=== PATIENT | female | born 1980 | race Caucasian/White ===

== ENCOUNTER 2019-10-19 09:52 | Day surgery (SDC) | payer OTHER ==
[~2019-10-19 09:52] MED LIST: Bupivacaine 0.5%/EPINEPHrine 1:200,000 50 ML MDV ONE
[2019-10-19] MEDS ORDERED: Acetaminophen 500 MG Tab PO ONE (10:00)
[2019-10-19] MEDS: Dextrose 5%-Lactated Ringers 1,000 ML IV SCH ×2 (10:08→14:13)
[2019-10-19] MEDS ORDERED: fentaNYL 250 MCG/5 ML SDV ONE (10:12)
[2019-10-19] MEDS ORDERED: Dexamethasone 4 MG/ML SDV ONE (10:12)
[2019-10-19] MEDS ORDERED: Rocuronium 50 MG/5 ML Vial ONE (10:12)
[2019-10-19] MEDS ORDERED: Ondansetron 4 MG/2 ML SDV ONE (10:12)
[2019-10-19] MEDS ORDERED: Propofol 200 MG/20 ML SDV ONE (10:12)
[2019-10-19] MEDS ORDERED: Glycopyrrolate 0.2 MG/ML 5 ML MDV ONE (10:12)
[2019-10-19] MEDS ORDERED: Neostigmine Methylsulfate 1 MG/ML 5 ML Syringe ONE (10:12)
[2019-10-19] MEDS ORDERED: Scopolamine 1.5 MG Transdermal Patch TOP SCH (10:30)
[2019-10-19] MEDS: cefOXitin 2 GM in Sodium Chloride 0.9% 50 ML IV ONE ×2 (11:05→13:16)
[2019-10-19] MEDS ORDERED: Ketorolac 60 MG/2 ML SDV ONE (11:22)
[2019-10-19] MEDS ORDERED: hydrOXYzine HCL 100 MG/2 ML SDV IM ONE (12:19)
[2019-10-19] MEDS ORDERED: fentaNYL 100 MCG/2 ML SDV IVPUSH ONE ×2 (12:19→12:33)
[2019-10-19] MEDS ORDERED: Ketamine 500 MG/5 ML MDV IV SCH (12:45)
[2019-10-19] MEDS ORDERED: Ondansetron 4 MG/2 ML SDV IVPUSH PRN (13:10)
[2019-10-19] MEDS ORDERED: HYDROmorphone 0.5 MG/0.5 ML Syringe IVPUSH PRN (13:10)
[2019-10-19] MEDS ORDERED: HYDROmorphone 1 MG/ML Syringe IV PRN (13:10)
[2019-10-19] MEDS ORDERED: SCOPOLAMINE PATCH CHECK TOP SCH (13:10)
[2019-10-19] MEDS ORDERED: Pantoprazole 40 MG Vial IVPUSH SCH (14:00)
[2019-10-19] MEDS ORDERED: Sodium Ferric Gluconate Cmplex 250 MG in Sodium Chloride 0.9% 100 ML IV ONE (15:00)
[2019-10-19] MEDS: Acetaminophen/oxyCODONE 325-5 MG Tab PO PRN ×3 (15:57→23:59)
[2019-10-19] MEDS: cefOXitin 2 GM in Sodium Chloride 0.9% 50 ML IV SCH ×2 (17:34→22:50)
[2019-10-20] MEDS: Dextrose 5%-Lactated Ringers 1,000 ML IV SCH (03:07)
[2019-10-20] MEDS: Acetaminophen/oxyCODONE 325-5 MG Tab PO PRN ×3 (03:11→09:51)
[2019-10-20] MEDS: cefOXitin 2 GM in Sodium Chloride 0.9% 50 ML IV SCH (05:07)
[2019-10-20 07:49] VITALS: BP 118/75; PULSE 87
--- NOTE | 2019-10-20 08:36 | DISCH ---
ADMISSION DIAGNOSES: 1. Cholelithiasis. 2. Status post Issa-en-Y gastric bypass surgery. 3. Unspecified surgical malabsorption. 4. B12 deficiency. 5. Iron deficiency anemia. 6. Vitamin D deficiency. 7. BMI 31. 8. Dyslipidemia. 9. Major depression disorder, recurrent episode, in full remission. 10.Venous insufficiency, chronic, peripheral. 11.Back pain. 12.Joint pain. DISCHARGE DIAGNOSES: Laparoscopic cholecystectomy for chronic cholecystitis and cholelithiasis. Date of surgery: 10/19/2019. Surgeon: Ac Harris MD. HISTORY: Layne Barros is a 39-year-old female who had right upper quadrant and mid epigastric abdominal pain. After preoperative evaluation and discussion of possible risks and possible complications, she wished to proceed with surgical procedure. HOSPITAL COURSE: Layne had her surgery on 10/19/2019. She received 1 dose of ferric gluconate 250 mg IV for low ferritin and received 1 on the day of discharge. Her pain was well managed. Her activity was good. She tolerated oral liquids and an oral diet, and vital signs were stable. She was able to be discharged to home. PHYSICAL EXAMINATION: GENERAL: Layne Barros is a 39-year-old female. VITAL SIGNS: Height 5 feet 8 inches, weight is 206 pounds. TPR 99.1, 58, 15, blood pressure 121/69. HEENT: Negative. NECK: Supple. HEART: Regular rate and rhythm. LUNGS: Clear. ABDOMEN: Dressings dry and intact. Her LEANDRA drain is a tea colored and will be left in. Total output was 70 mL. EXTREMITIES: Without peripheral edema. DISPOSITION: Discharged to home. CONDITION: Stable and improving. FOLLOWUP: Appointment with Megan Allen PA-C, on 10/29/2019 at 10 a.m. NEW PRESCRIPTIONS: Percocet 5/325 mg 1 every 4 hours p.r.n. pain #42. She is to resume her home medication; calcium with vitamin D 1 tablet twice daily, vitamin D3 5000 International Units daily, B12 1000 mcg oral daily, Vitron-C 1 three times daily, multivitamin 1 tablet twice daily, fish oil 1000 mg, softgel oral daily, vitamin B complex 1 tablet daily. DIET: Usual diet as tolerated. Drink 8 to 10 glasses of water a day. ACTIVITY: No lifting greater than 10 pounds for 2 weeks. Walk 6 times daily inside your home. No lifting greater than 10 pounds for 2 weeks. Driving: Do not drive while on pain medication. May shower. Notify provider if any fever, increased pain, nausea, or vomiting. Keep site clean and dry. Use incentive spirometer 10 times every hour while awake. Strip, empty, measure, and record amount and color of LEANDRA drain 4 times a day and bring to clinic appointments. SPECIAL INSTRUCTION: Use incentive spirometer 10 times every hour while awake for 1 week and wear abdominal binder for 2 weeks and then as tolerated.
[2019-10-20] MEDS ORDERED: Sodium Ferric Gluconate Cmplex 250 MG in Sodium Chloride 0.9% 100 ML IV ONE (09:00)
--- NOTE | 2019-10-21 12:30 | OR ---
DATE OF PROCEDURE: 10/19/2019 SURGEON: Ac Harris MD PREOPERATIVE DIAGNOSIS: Chronic cholecystitis and cholelithiasis. POSTOPERATIVE DIAGNOSIS: Chronic cholecystitis and cholelithiasis. OPERATIVE PROCEDURE: Laparoscopic cholecystectomy (60378). ANESTHESIA: General. INDICATION FOR PROCEDURE: This is a 39-year-old female presenting with recurrent episodes of right upper quadrant pain radiating to the back. Ultrasound did show cholelithiasis. Clinically, the patient's picture is consistent with biliary colic. Plan is to proceed with a laparoscopic or if necessary open cholecystectomy. Potential risks of the procedure including bleeding, infection, injury to underlying viscera, possible migration of stones into the common bile duct requiring additional procedure for correction as well as the remote possibility of cardiopulmonary, septic, or hemorrhagic complications leading to were discussed. She is also aware of the possibility of some persistent symptoms postoperatively, all these are present, and she wishes to proceed. Additionally, as reviewed with the patient preoperatively, her ferritin level recently was noted to be quite low at 3, and she will receive some postoperative iron infusions. DETAILS OF PROCEDURE: The patient was taken to the operating room and after general endotracheal anesthesia was induced, the abdomen was prepped and draped. An epigastric transverse incision was made and peritoneal cavity entered under direct vision with an Optiview trocar, inflated to 15 mmHg pressure with CO2. Laparoscope was then reinserted. No underlying trocar insertion site injuries were seen. Following this, additional 12 mm trocar was placed in the subumbilical area, and the right subcostal 5 mm trocar placed. The patient had bilateral transversus abdominis plane blocks at this point. The gallbladder was noted to be thick-walled and parker in appearance and had some omental adhesions, which were taken down with Harmonic scalpel. This allowed then dissection down toward the gallbladder-cystic duct junction. Once that area was well delineated as was the adjacent cystic artery, the cystic duct-gallbladder neck junction was initially taken with surgical stapler, this being a amador load. The artery was then clipped 3 times proximally and once distally, and divided. Gallbladder was then dissected off the gallbladder bed with Harmonic scalpel and delivered through the epigastric trocar site. Upon removal of the gallbladder, it contained multiple small stones, some of which were given to the patient and the remainder were sent with the pathologic specimen. The area of dissection was inspected. The patient's cystic duct closure was quite edematous, which was the reason we used stapler. Given this, there is some chance of some postoperative bile leak and therefore a 10-Malay Rick-Rodriguez drain was placed through the right lateral trocar site and positioned into the area of the gallbladder fossa. The remaining trocars were then removed, and the peritoneal cavity deflated. The fascia at the midline 12 mm site was closed with 0 Vicryl stitch, and the skin with 4-0 Vicryl skin stitch. Dressing was applied. The patient was taken to the recovery room in satisfactory condition. Ac Harris MD /[id number]
== END 2019-10-20 13:05 | disposition home or self-care (01) ==
LOC: JP.SDS 09:52 → JP.MS 13:13 → JP.SDS 10-20 13:05
PROVIDERS: ATTEND Surgery
DX: K80.10 Calculus of gallbladder with chronic cholecystitis without obstruction (principal); I89.8 Other specified noninfective disorders of lymphatic vessels and lymph nodes; I87.2 Venous insufficiency (chronic) (peripheral); E78.00 Pure hypercholesterolemia, unspecified; E55.9 Vitamin D deficiency, unspecified; E66.9 Obesity, unspecified; K91.2 Postsurgical malabsorption, not elsewhere classified; F41.9 Anxiety disorder, unspecified; F32.5 Major depressive disorder, single episode, in full remission; Z88.5 Allergy status to narcotic agent; Z91.048 Other nonmedicinal substance allergy status; Z68.31 Body mass index [BMI] 31.0-31.9, adult; Z79.899 Other long term (current) drug therapy
CPT/HCPCS: 36415; 47562; 81025; 82247; 84075; 85025; 88304; 94762; A9270; C9113; J0171; J0694; J1100; J1170; J1885; J2405; J2704; J2710; J2795; J2916; J3010; J3410; J3490; J7050; J7121

== ENCOUNTER 2019-10-23 22:28 | Observation (INO) | payer OTHER ==
[2019-10-23] MEDS ORDERED: Ondansetron 4 MG/2 ML SDV IVPUSH ONE (23:24)
[2019-10-23] MEDS ORDERED: HYDROmorphone 0.5 MG/0.5 ML Syringe IVPUSH ONE (23:25)
[2019-10-23] MEDS ORDERED: Sodium Chloride 0.9% 1,000 ML IV SCH (23:30)
--- NOTE | 2019-10-23 23:31 | EDM.PDOC ---
ED HPI GENERAL MEDICAL PROBLEM - General Chief Complaint: Abdominal Pain Stated Complaint: SURGERY TUES IN PAIN Time Seen by Provider: 10/23/19 23:26 Source of Information: Reports: Patient History Limitations: Reports: No Limitations - History of Present Illness INITIAL COMMENTS - FREE TEXT/NARRATIVE: pt had a laproscopic gall bladder on friday. She has suddenly had alot of increase in pain in the rt upper abdoman. She has a LEANDRA in but she does not have sig drainage coming from that. She is running za temp tonight. She has had chills. Onset: Today, Other (pt has felt alot sicker today. She has had a fever and increased pain. ) Duration: Hour(s): Location: Reports: Abdomen Associated Symptoms: Reports: Fever/Chills, Loss of Appetite, Other ( increased pain. ) 8 Pain Score (Numeric/FACES): 6 - Related Data Allergies Allergy/AdvReac Type Severity Reaction Status Date / Time adhesive tape Allergy Unknown Rash Uncoded 10/23/19 22:44 Home Meds: Home Meds Calcium Carb/Vitamin D3/Vit K1 [Calcium + Vit D & K Chew] 1 tab PO BID 01/23/16 [History] Cholecalciferol (Vitamin D3) [Vitamin D3] 5,000 unit PO DAILY 01/23/16 [History] Vitamin B Complex [B Complex] 1 tab SL DAILY 01/23/16 [History] Cyanocobalamin (Vitamin B-12) [Vitamin B-12] 1,000 mcg PO DAILY 10/15/19 [ History] Iron,Carbonyl/Ascorbic Acid [Iron 100-Vitamin C Tablet] 65 - 125 mg PO TID 10/15 [History] [place]-3 Fatty Acids/Fish Oil [Fish Oil 1,000 mg Softgel] 1,000 mg PO DAILY 10/15 [History] Multivitamins [Childrens Chewable Vitamin] 2 tab PO DAILY 10/19/19 [History] Acetaminophen/oxyCODONE [Percocet 325-5 MG] 1 tab PO Q4HR PRN #42 tablet [Rx] Pantoprazole Sodium 1 tab PO DAILY 10/23/19 [History] Past Medical History [employer] History: Reports: Musculoskeletal History: Reports: Arthritis Neurological History: Reports: Other (See Below) Other Neuro History: Michelle olivarez Psychiatric History: Reports: Depression Hematologic History: Reports: B12 Deficiency, Iron Deficiency - Infectious Disease History Infectious Disease History: Reports: Chicken Pox - Past Surgical History HEENT Surgical History: Reports: Adenoidectomy, Oral Surgery, Tonsillectomy, Other (See Below) GI Surgical History: Reports: Bariatric Procedure, Cholecystectomy, EGD Female Surgical History: Reports: Section Social & Family History - Tobacco Use Smoking Status *Q: Never Smoker - Caffeine Use Caffeine Use: Reports: Coffee ED ROS GENERAL - Review of Systems Review Of Systems: See Below Constitutional: Reports: Fever, Chills, Malaise HEENT: Reports: No Symptoms Respiratory: Reports: No Symptoms Cardiovascular: Reports: Palpitations Endocrine: Reports: No Symptoms GI/Abdominal: Reports: Abdominal Pain, Other (pt has increased abdomanal pain. ) : Reports: No Symptoms Musculoskeletal: Reports: No Symptoms Skin: Reports: No Symptoms ED EXAM, GI/ABD - Physical Exam Exam: See Below Text/Narrative:: pt arrived with increased pain in the rt upper quadrant. She has a fever. She had her gall bladder removed on friday. She is not vomiting. She has been chilling. Exam Limited By: No Limitations General Appearance: Alert, Anxious, Moderate Distress Ears: Normal TMs Nose: Normal Inspection Throat/Mouth: Normal Inspection Head: Atraumatic Neck: Normal Inspection Respiratory/Chest: No Respiratory Distress Cardiovascular: Regular Rate, Rhythm GI/Abdominal Exam: Other (pt is very tender over the rt upoper abdoman. ) (Female) Exam: Deferred Rectal (Female) Exam: Deferred Back Exam: Normal Inspection Extremities: Normal Inspection Neurological: Alert, Oriented, Normal Cognition Psychiatric: Normal Affect Course - Vital Signs Last Recorded V/S: Last Vital Signs Temp 36.9 C 10/24/19 15:08 Pulse 101 H 10/24/19 15:08 Resp 16 10/24/19 15:08 BP 125/70 10/24/19 15:08 Pulse Ox 94 L 10/24/19 15:08 - Orders/Labs/Meds Orders: Active Orders 24 hr Category Date Time Status CULTURE BLOOD [BC] Urgent Lab 10/24/19 01:35 Received CULTURE BLOOD [BC] Urgent Lab 10/24/19 01:40 Received Blood Culture x2 Reflex Set [OM.PC] Urgent Oth 10/24/19 01:27 Ordered Medication Orders Diphenhydramine HCl (Benadryl) 25 - 50 mg IVPUSH Q4H PRN PRN Reason: Itching Last Admin: 10/24/19 09:20 Dose: 50 mg Diphenhydramine HCl (Benadryl) 25 - 50 mg PO Q4H PRN PRN Reason: Itching Hydromorphone HCl (Dilaudid District Extension Service Agent 15 Mg In Ns 30 Ml) 0 mg IV ASDIRECTED PRN; Protocol PRN Reason: Pain Last Admin: 10/24/19 02:31 Dose: 15 mg Piperacillin/Tazobactam/ (Dextrose 3.375 gm/ Premix) 50 mls @ 100 mls/hr IV Q6H [facility] Last Admin: 10/24/19 14:59 Dose: 100 mls/hr Infusion: 10/24/19 09:50 Dose: 100 mls/hr Admin: 10/24/19 09:20 Dose: 100 mls/hr Dextrose/Lactated Ringer's (Dextrose 5%-Lactated Ringers) 1,000 mls @ 100 mls/ hr IV ASDIRECTED [facility] Last Admin: 10/24/19 09:24 Dose: 100 mls/hr Naloxone HCl (Narcan) 0.4 mg IVPUSH Q2M PRN PRN Reason: Respiratory Distress Ondansetron HCl (Zofran) 4 mg IV Q6H PRN PRN Reason: Nausea/Vomiting Last Admin: 10/24/19 12:59 Dose: 4 mg Admin: 10/24/19 06:45 Dose: 4 mg Admin: 10/24/19 02:38 Dose: 4 mg Pantoprazole Sodium (Protonix Iv) 40 mg IV Q24H [facility] Last Admin: 10/24/19 09:27 Dose: 40 mg Labs: Laboratory Tests 10/23/19 10/23/19 10/23/19 Range/Units 23:33 23:33 23:33 WBC 10.1 (4.5-11.0) K/uL RBC 3.98 (3.30-5.50) M/uL Hgb 11.3 L (12.0-15.0) g/dL Hct 35.9 L (36.0-48.0) % MCV 90 (80-98) fL MCH 28 (27-31) pg MCHC 32 (32-36) % Plt Count 247 (150-400) K/uL Neut % (Auto) 80 H (36-66) % Lymph % (Auto) 8 L (24-44) % [place] % (Auto) 9 H (2-6) % Eos % (Auto) 3 (2-4) % Baso % (Auto) 0 (0-1) % Sodium 135 L (140-148) mmol/L Potassium 4.3 (3.6-5.2) mmol/L Chloride 101 (100-108) mmol/L Carbon Dioxide 22 (21-32) mmol/L Anion Gap 16.3 H (5.0-14.0) mmol/L BUN 9 (7-18) mg/dL Creatinine 0.7 (0.6-1.0) mg/dL Est Cr Clr Drug Dosing 108.85 mL/min Estimated GFR (MDRD) > 60 (>60) Glucose 115 H (74-106) mg/dL Lactic Acid 1.3 (0.4-2.0) mmol/L Calcium 8.9 (8.5-10.1) mg/dL Total Bilirubin 0.6 (0.2-1.0) mg/dL AST 236 H (15-37) U/L ALT 454 H (12-78) U/L Alkaline Phosphatase 237 H D (46-116) U/L Total Protein 6.9 (6.4-8.2) g/dL Albumin 3.5 (3.4-5.0) g/dL Globulin 3.4 (2.3-3.5) g/dL Albumin/Globulin Ratio 1.0 L (1.2-2.2) Lipase (73-393) U/L Urine Color (YELLOW) Urine Appearance (CLEAR) Urine pH (5.0-8.0) Ur Specific [place] (1.008-1.030) Urine Protein (NEGATIVE) mg/dL Urine Glucose (UA) (NEGATIVE) mg/dL Urine Ketones (NEGATIVE) mg/dL Urine Occult Blood (NEGATIVE) Urine Nitrite (NEGATIVE) Urine Bilirubin (NEGATIVE) Urine Urobilinogen (0.2-1.0) EU/dL Ur Leukocyte Esterase (NEGATIVE) Urine RBC (0-5) Urine WBC (0-5) Ur Epithelial Cells Amorphous Sediment Urine Bacteria Urine Mucus 10/24/19 10/24/19 Range/Units 00:10 00:43 WBC (4.5-11.0) K/uL RBC (3.30-5.50) M/uL Hgb (12.0-15.0) g/dL Hct (36.0-48.0) % MCV (80-98) fL MCH (27-31) pg MCHC (32-36) % Plt Count (150-400) K/uL Neut % (Auto) (36-66) % Lymph % (Auto) (24-44) % [place] % (Auto) (2-6) % Eos % (Auto) (2-4) % Baso % (Auto) (0-1) % Sodium (140-148) mmol/L Potassium (3.6-5.2) mmol/L Chloride (100-108) mmol/L Carbon Dioxide (21-32) mmol/L Anion Gap (5.0-14.0) mmol/L BUN (7-18) mg/dL Creatinine (0.6-1.0) mg/dL Est Cr Clr Drug Dosing mL/min Estimated GFR (MDRD) (>60) Glucose (74-106) mg/dL Lactic Acid (0.4-2.0) mmol/L Calcium (8.5-10.1) mg/dL Total Bilirubin (0.2-1.0) mg/dL AST (15-37) U/L ALT (12-78) U/L Alkaline Phosphatase (46-116) U/L Total Protein (6.4-8.2) g/dL Albumin (3.4-5.0) g/dL Globulin (2.3-3.5) g/dL Albumin/Globulin Ratio (1.2-2.2) Lipase 94 (73-393) U/L Urine Color Yellow (YELLOW) Urine Appearance Clear (CLEAR) Urine pH 7.0 (5.0-8.0) Ur Specific [place] 1.020 (1.008-1.030) Urine Protein Negative (NEGATIVE) mg/dL Urine Glucose (UA) Negative (NEGATIVE) mg/dL Urine Ketones 15 H (NEGATIVE) mg/dL Urine Occult Blood Negative (NEGATIVE) Urine Nitrite Negative (NEGATIVE) Urine Bilirubin Negative (NEGATIVE) Urine Urobilinogen 2.0 H (0.2-1.0) EU/dL Ur Leukocyte Esterase Negative (NEGATIVE) Urine RBC 0-5 (0-5) Urine WBC 0-5 (0-5) Ur Epithelial Cells Few Amorphous Sediment Not seen Urine Bacteria Few Urine Mucus Not seen Meds: Medications Generic Name Dose Route Start Last Admin Trade Name Earnest PRN Reason Stop Dose Admin Diphenhydramine HCl 25 - 50 mg 10/24/19 08:14 10/24/19 09:20 Benadryl IVPUSH 50 mg Q4H PRN Administration Itching Diphenhydramine HCl 25 - 50 mg 10/24/19 08:14 Benadryl PO Q4H PRN Itching Hydromorphone HCl 0 mg 10/24/19 02:00 10/24/19 02:31 Dilaudid District Extension Service Agent 15 Mg In Ns 30 Ml IV 15 mg ASDIRECTED PRN Administration Pain Protocol Piperacillin/Tazobactam/ 50 mls @ 100 mls/hr 10/24/19 09:00 10/24/19 14:59 Dextrose 3.375 gm/ Premix IV 100 mls/hr Q6H [facility] Administration Dextrose/Lactated Ringer's 1,000 mls @ 100 mls/hr 10/24/19 08:30 10/24/19 09: 24 Dextrose 5%-Lactated Ringers IV 100 mls/hr ASDIRECTED HENRY Administration Naloxone HCl 0.4 mg 10/24/19 02:00 Narcan IVPUSH Q2M PRN Respiratory Distress Ondansetron HCl 4 mg 10/24/19 01:55 10/24/19 12:59 Zofran IV 4 mg Q6H PRN Administration Nausea/Vomiting Pantoprazole Sodium 40 mg 10/24/19 10:00 10/24/19 09:27 Protonix Iv IV 40 mg Q24H [facility]ENRY Administration Discontinued Medications Generic Name Dose Route Start Last Admin Trade Name Earnest PRN Reason Stop Dose Admin Glucagon 2 mg 10/24/19 10:00 10/24/19 14:59 Glucagen IM 10/24/19 18:01 2 mg Q4H [facility]ENRY Administration Hydromorphone HCl 0.5 mg 10/23/19 23:25 10/23/19 23:45 Dilaudid IVPUSH 10/23/19 23:26 0.5 mg ONETIME ONE Administration Hydromorphone HCl 0.5 mg 10/24/19 01:06 10/24/19 01:14 Dilaudid IVPUSH 10/24/19 01:07 0.5 mg ONETIME ONE Administration Sodium Chloride 1,000 mls @ 999 mls/hr 10/23/19 23:30 10/23/19 23:42 Normal Saline IV 999 mls/hr ASDIRECTED HENRY Administration Sodium Chloride 82 mls @ 3 mls/sec 10/24/19 00:20 10/24/19 00:35 Normal Saline IV 10/24/19 00:21 3 mls/sec ONETIME ONE Administration Sodium Chloride 1,000 mls @ 999 mls/hr 10/24/19 00:30 10/24/19 01:13 Normal Saline IV 999 mls/hr ASDIRECTED HENRY Administration Piperacillin Sod/Tazobactam 50 mls @ 100 mls/hr 10/24/19 01:45 10/24/19 03:01 Sod 3.375 gm/ Sodium Chloride IV 100 mls/hr Q6H [facility] Administration Sodium Chloride 1,000 mls @ 200 mls/hr 10/24/19 02:15 10/24/19 02:40 Normal Saline IV 200 mls/hr ASDIRECTED [facility]ENRY Administration Iopamidol 138 ml 10/24/19 00:30 10/24/19 00:35 Isovue-300 (61%) IV 138 ml . DIRECTED [facility]ENRY Administration Ondansetron HCl 4 mg 10/23/19 23:24 10/23/19 23:43 Zofran IVPUSH 10/23/19 23:25 4 mg ONETIME ONE Administration Sodium Chloride 10 ml 10/24/19 00:20 10/24/19 00:35 Saline Flush FLUSH 10 ml ONETIME PRN Administration PER RADIOLOGY PROTOCOL - Re-Assessments/Exams Free Text/Narrative Re-Assessment/Exam: 10/24/19 01:32 pt did not have a elevated bilirubin but the rest of her liver enzymes are elevated. Her wbc was not elevated. She had a cat scan of the abdoman which does show dilation of the common duct. This did dilated a fair amount. She did have alot of small stones and when this was discussed with Dr Harris he wondered if she dropped a piece of gravel into the common duct. He decided to admit and iobserve. If the enzymes continue to rise she will need a ERCP 10/24/19 18:17 Departure - Departure Time of Disposition: 01:36 Disposition: Admitted As Inpatient 66 Condition: Fair Clinical Impression: Elevated liver enzymes, Status post cholecystectomy - Discharge Information Sepsis Event Note - Evaluation Sepsis Screening Result: No Definite Risk - Focused Exam Date Exam was Performed: 10/24/19 Time Exam was Performed: 18:17 - My Orders Last 24 Hours: My Active Orders 10/24/19 01:27 Blood Culture x2 Reflex Set [OM.PC] Urgent 10/24/19 01:35 CULTURE BLOOD [BC] Urgent 10/24/19 01:40 CULTURE BLOOD [BC] Urgent - Assessment/Plan Last 24 Hours: My Active Orders 10/24/19 01:27 Blood Culture x2 Reflex Set [OM.PC] Urgent 10/24/19 01:35 CULTURE BLOOD [BC] Urgent 10/24/19 01:40 CULTURE BLOOD [BC] Urgent
[2019-10-24] MEDS ORDERED: Sodium Chloride 0.9% 10 ML Syringe FLUSH PRN (00:20)
[2019-10-24] MEDS ORDERED: Sodium Chloride 0.9% 1,000 ML IV SCH ×2 (00:30→02:15)
[2019-10-24] MEDS ORDERED: Iopamidol 612 MG/ML 150 ML Bottle IV SCH (00:30)
[2019-10-24] MEDS ORDERED: HYDROmorphone 0.5 MG/0.5 ML Syringe IVPUSH ONE (01:06)
--- NOTE | 2019-10-24 01:21 | CRLCT ---
Indication: Increased right upper quadrant pain, status post cholecystectomy on Friday Technique: Contrast enhanced axial CT imaging through the abdomen and pelvis. 138 mL Isovue-300 contrast agent was administered intravenously. Sagittal and coronal reconstructions are provided. Comparison: Ultrasound abdomen 10/14/2019 Findings: Gallbladder surgically absent. A surgical drain is seen in the gallbladder fossa. There is mild scattered pneumoperitoneum, which is expected in the postoperative state. There is mild dilatation of the common bile duct, measuring up to 12 mm, compared to 6 mm on prior ultrasound. There is mild intrahepatic biliary ductal dilatation. The spleen, pancreas, adrenal glands, and kidneys are unremarkable. There is normal enhancement of the portal venous system. There is normal caliber of the abdominal aorta. Issa-en-Y gastric bypass changes are noted. There are no abnormally dilated small bowel loops. The appendix is noninflamed. There is no colonic wall thickening. No inflammatory changes are demonstrated in the mesentery. There is no abdominal lymphadenopathy. The visualized osseous structures are unremarkable. The included lung bases are clear. Impression: Biliary dilatation with the common bile duct now measuring up to 12 mm, compared to 6 mm prior to cholecystectomy. While this may be secondary to cholecystectomy, given the short interval an obstructing process such as choledocholithiasis is not excluded. Correlate clinically. MRCP may be beneficial for further evaluation. Please note that all CT scans at this facility use dose modulation, iterative reconstruction, and/or weight-based dosing when appropriate to reduce radiation dose to as low as reasonably achievable. Dictated by Iban Lafleur MD @ Oct 24 2019 1:19AM Signed by Dr. Iban Lafleur @ Oct 24 2019 1:19AM
[2019-10-24] MEDS ORDERED: Piperacillin/Tazobactam 3.375 GM in Sodium Chloride 0.9% 50 ML IV SCH (01:45)
[2019-10-24] MEDS ORDERED: Naloxone 0.4 MG/ML SDV IVPUSH PRN (02:00)
[2019-10-24] MEDS ORDERED: HYDROmorphone/Normal Saline 15 MG/30 ML PCA IV PRN (02:00)
[2019-10-24] MEDS: Ondansetron 4 MG/2 ML SDV IV PRN ×4 (02:38→20:43)
[2019-10-24] MEDS ORDERED: diphenhydrAMINE 25 MG Cap PO PRN (08:14)
[2019-10-24] MEDS ORDERED: diphenhydrAMINE 50 MG/ML SDV IVPUSH PRN (08:14)
[2019-10-24] MEDS: Piperacillin/Tazobactam/Dext 3.375 GM in Premix Bag 1 BAG IV SCH ×3 (09:20→20:09)
[2019-10-24] MEDS: Dextrose 5%-Lactated Ringers 1,000 ML IV SCH (09:24)
[2019-10-24] MEDS: Pantoprazole 40 MG Vial IV SCH (09:27)
[2019-10-24] MEDS: Glucagon,Human Recombinant 1 MG Vial IM SCH ×3 (09:27→18:25)
[2019-10-24] MEDS ORDERED: hydrOXYzine HCL 100 MG/2 ML SDV IM PRN (22:10)
[2019-10-25] MEDS: Piperacillin/Tazobactam/Dext 3.375 GM in Premix Bag 1 BAG IV SCH ×4 (02:43→20:59)
[2019-10-25] MEDS: LORazepam 0.5 MG Tab PO PRN ×2 (03:03→08:42)
[2019-10-25] MEDS: Dextrose 5%-Lactated Ringers 1,000 ML IV SCH ×2 (06:38→19:02)
[2019-10-25] MEDS ORDERED: Hydrogen Peroxide 3% Top Soln 240 ML Bottle TOP PRN (08:04)
--- NOTE | 2019-10-25 08:39 | PN ---
DATE OF SERVICE: 10/25/2019 SUBJECTIVE: Layne had her gallbladder removed on 10/19/2019. She felt good until Friday noon 10/23/2019, developed severe right upper quadrant abdominal pain. She went into ER and she was hospitalized. She is n.p.o. and will be having an MRCP today. Vital signs have been stable. She has been afebrile. N.p.o. since midnight. Labs this morning, hemoglobin 10.6. Bilirubin went from 0.6 to 1.5, AST 136, ALT 386, alkaline phosphatase 251. She reports pain on a pain scale of 1 to 10, 3. 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 Denies any nausea, vomiting. REVIEW OF SYSTEMS: Remainder of review of systems negative for any pertinent positives or negatives. OBJECTIVE: GENERAL: Layne Barros is a pleasant 39-year-old female. VITAL SIGNS: TPR 98.7, 98, 16, blood pressure 111/62. HEENT: Negative. NECK: Supple. HEART: Regular rate and rhythm. LUNGS: Clear. ABDOMEN: Tenderness in the mid upper and right upper quadrants. LEANDRA drain is intact, draining a very light tea colored drainage. EXTREMITIES: Without peripheral edema. ASSESSMENT: 1. Right upper quadrant abdominal pain. 2. Elevated liver function tests. PLAN: 1. MRCP is scheduled today. Give Ativan 0.5 mg p.o. with a sip of water before MRCP. Wash area around the LEANDRA drain with peroxide, place bacitracin, and secure the LEANDRA drain per usual protocol so it is not pulling on the sutures and the skin. 2. To call Ac Harris MD, with results of MRCP. 3. We will evaluate p.r.n. or in a.m. Megan Allen PA-C /[id number]
[2019-10-25] MEDS: Pantoprazole 40 MG Vial IV SCH (10:23)
--- NOTE | 2019-10-25 10:23 | MR ---
Cholangiopancreatography CLINICAL HISTORY: Biliary dilatation postcholecystectomy COMPARISON: CT abdomen 10/24/2019 TECHNIQUE: Multiple images of the biliary system were obtained. All images were obtained on a 1.5 Nikole Siemens unit. FINDINGS: Patient is status post recent cholecystectomy. The there is a normal-appearing cystic duct remnant. The there is mild prominence of the intrahepatic biliary tree. The common hepatic duct measures 13 mm in diameter. This gradually tapers through the common bile duct to the ampulla where it tapers. No definite filling defects are identified. There is soft tissue fullness to the ampulla without definite mass. IMPRESSION: Recent cholecystectomy Common hepatic and common bile duct dilatation with gradual tapering at the level of the ampulla where there is some generalized soft tissue prominence. This may represent inflammation or spasm or slight stricture formation at the sphincter of [place]. No stone is seen within the duct on either MR or CT. If clinically relevant, ERCP should be considered
--- NOTE | 2019-10-25 12:53 | PN ---
DATE OF SERVICE: 10/24/2019 The patient was admitted overnight with some increasing abdominal pain. She does continue to have of a bile leak, however, it is fairly dilute this morning and her bilirubin remains normal. Otherwise, alkaline phosphatase, SGOT, and ALT are elevated, but that would be typical for a post gallbladder set of liver function tests. The patient had a CT scan which showed the common bile duct increased from 6 mm on the preoperative ultrasound to around 12 mm on the CAT scan, and I suspect the patient may have passed a stone into the common bile duct. Her stones are very tiny and they would easily get into the common bile duct. Given this, we will try relaxing the sphincter, loading with glucagon 2 mg IM. We will give 3 doses during the day today and then obtain an MRCP in the morning. Hopefully, we can get the things to open up. Otherwise, we will stick with full liquid diet for today and n.p.o. as needed prior to the MRCP. We will recheck some labs in the morning as well. Ac Harris MD /[id number]
[2019-10-25] MEDS: Docusate Sodium 100 MG Cap PO PRN (20:59)
[2019-10-25] MEDS: Bacitracin Oint 28.35 GM Tube TOP SCH (20:59)
[2019-10-26] MEDS: Piperacillin/Tazobactam/Dext 3.375 GM in Premix Bag 1 BAG IV SCH ×2 (02:53→08:42)
[2019-10-26] MEDS: Dextrose 5%-Lactated Ringers 1,000 ML IV SCH (06:04)
[2019-10-26 07:26] VITALS: BP 101/56; PULSE 94
[2019-10-26] MEDS ORDERED: Acetaminophen/HYDROcodone 325-5 MG Tab PO PRN (07:40)
[2019-10-26] MEDS ORDERED: Magnesium Hydroxide 400 MG/5 ML Susp 30 ML Cup PO PRN (07:41)
[2019-10-26] MEDS: Docusate Sodium 100 MG Cap PO PRN (08:41)
[2019-10-26] MEDS: Bacitracin Oint 28.35 GM Tube TOP SCH (08:50)
[2019-10-26] MEDS ORDERED: Pantoprazole 40 MG Tab.CR PO SCH (11:30)
--- NOTE | 2019-10-26 11:40 | DISCH ---
FINAL DIAGNOSES: 1. Probable edema at ampulla of Vater, likely related to passage of common bile duct stone. 2. Low-grade bile leak, being drained by LEANDRA drain. 3. Status post cholecystectomy, 10/19/2019. 4. Bariatric surgery status. 5. History of depression. 6. History of hyperlipidemia. OPERATIVE PROCEDURES: None. HOSPITAL COURSE: This is a 39-year-old, who underwent a laparoscopic cholecystectomy on 10/19/2019. She did have a small low-grade bile leak at the time of discharge and was sent home with LEANDRA drain in place. Over the weekend, she became somewhat more nauseated and had increased pain. On CT scan, she was noted to have somewhat of a dilated common bile duct compared to the previous ultrasound, going from 0.6 to 1.2 cm in diameter. Her initial bilirubin was normal. On the second day of the hospitalization, bilirubin did go up to 1.5. We obtained an MRCP yesterday, which showed an otherwise intact and smooth common bile duct, which tapers down to what appeared to be quite edematous ampulla of Vater. There was passage of bile through the ampulla of Vater. This morning, her bilirubin was down to 0.7. I think she probably has passed the stone and will most likely not need to do anything operatively at this point. LEANDRA drain has had very faint bile staining today, and we will leave that in place. She will be discharged home. We will have her see Megan Allen back in [facility] on Friday, in other words, in 3 days, and she will be asked to track when the LEANDRA drain becomes clear. We will check some labs at that time. She will be on her usual home medications plus [place] 5/325 one or two tabs q.6 hours p.r.n. pain, #40. She is instructed to try to stay hydrated with Gatorade and such. Otherwise, diet is as tolerated.
[2019-10-27] MEDS ORDERED: Pantoprazole 40 MG Tab.CR PO SCH (11:30)
== END 2019-10-26 10:00 | disposition home or self-care (01) ==
LOC: JP.ED 22:28 → JP.MS 10-24 01:55
PROVIDERS: ADMIT Surgery; ATTEND Surgery
DX: K80.50 Calculus of bile duct without cholangitis or cholecystitis without obstruction (principal); K83.8 Other specified diseases of biliary tract; F32.9 Major depressive disorder, single episode, unspecified; E78.5 Hyperlipidemia, unspecified; D50.9 Iron deficiency anemia, unspecified; E53.8 Deficiency of other specified B group vitamins; M19.90 Unspecified osteoarthritis, unspecified site; Z90.49 Acquired absence of other specified parts of digestive tract; Z98.84 Bariatric surgery status; Z91.048 Other nonmedicinal substance allergy status
CPT/HCPCS: 36415; 74177; 74181; 80053; 81001; 83605; 83690; 83735; 84100; 85025; 85027; 87040; 94762; 96360; 99284; A9270; C9113; J1170; J1200; J1610; J2405; J2543; J3410; J7030; J7050; J7121; Q9967

== ENCOUNTER 2022-03-12 06:34 | Day surgery (SDC) | payer OTHER ==
[2022-03-12] MEDS ORDERED: Midazolam 1 MG/ML 2 ML SDV ONE (07:00)
[2022-03-12] MEDS ORDERED: Propofol 200 MG/20 ML SDV ONE ×2 (07:00→08:21)
[2022-03-12] MEDS ORDERED: fentaNYL 100 MCG/2 ML SDV ONE (07:00)
[2022-03-12] MEDS ORDERED: Sodium Chloride 0.9% 1,000 ML IV SCH (07:30)
[2022-03-12 09:33] VITALS: BP 105/76; PULSE 69
== END 2022-03-12 09:48 | disposition home or self-care (01) ==
LOC: JP.SDS 06:34
PROVIDERS: ATTEND Surgery
DX: K92.2 Gastrointestinal hemorrhage, unspecified (principal); K64.8 Other hemorrhoids
CPT/HCPCS: J2250; J2704; J3010; J7030

== ENCOUNTER 2024-12-02 20:12 | Inpatient (IN) | payer BC, OTHER ==
[2024-12-02] MEDS ORDERED: Sodium Chloride 0.9% 10 ML Syringe FLUSH PRN (22:03)
[2024-12-02] MEDS: Iopamidol 612 MG/ML 100 ML Bottle IV SCH (23:05)
[2024-12-02] MEDS: Sodium Chloride 0.9% 80 ML IV SCH (23:05)
[2024-12-02] MEDS: Sodium Chloride 0.9% 10 ML Syringe FLUSH ONE (23:05)
[2024-12-02] MEDS: Ondansetron 4 MG/2 ML SDV IVPUSH ONE (23:54)
[2024-12-03] MEDS ORDERED: Naloxone 0.4 MG/ML SDV IVPUSH PRN (00:20)
[2024-12-03 00:39] LABS: BASOPHILS ABSOLUTE AUTO 0.04 K/uL (0.00-0.10); BASOPHILS PERCENT AUTO 0.6 % (0.1-1.3); EOSINOPHILS ABSOLUTE AUTO 0.08 K/uL (0.00-0.40); EOSINOPHILS PERCENT AUTO 1.2 % (0.0-5.4); HEMATOCRIT 34.5 % (34.3-46.0); HEMOGLOBIN 11.7 g/dL (11.2-15.5); IMMATURE GRAN PERCENT AUTO 0.3 % (0.0-0.7); LYMPHOCYTES ABSOLUTE AUTO 1.59 K/uL (0.8-3.3); LYMPHOCYTES PERCENT AUTO 24.1 % (11.4-47.7); MEAN CORPUSCULAR HEMOGLOBIN 31.7 pg (31.6-35.5); MEAN CORPUSCULAR HGB CONC 33.9 g/dL (31.6-35.5); MEAN CORPUSCULAR VOLUME 93.5 fL (81.4-99.0); MONOCYTES ABSOLUTE AUTO 0.54 K/uL (0.20-0.90); MONOCYTES PERCENT AUTO 8.2 % (3.3-12.6); NEUTROPHILS ABSOLUTE AUTO 4.33 K/uL (1.0-7.6); NEUTROPHILS PERCENT AUTO 65.6 % (40.0-78.1); PLATELET COUNT,PLT 200 K/uL (130-375); RED BLOOD CELL COUNT 3.69 M/uL (3.77-5.24); WHITE BLOOD CELL COUNT,WBC 6.6 K/uL (3.2-11.0)
[2024-12-03 00:41] LABS: IMMATURE GRAN ABSOLUTE AUTO 0.02 K/uL (0.00-0.23)
[2024-12-03] MEDS: HYDROmorphone 0.5 MG/0.5 ML Syringe IVPUSH PRN (02:17)
[2024-12-03] MEDS: Sodium Chloride 0.9% 1,000 ML IV SCH (02:19)
[2024-12-03 03:20] LABS: A/G RATIO 1.3 (1.2-2.2); ALANINE AMINOTRANSFERASE,ALT 47 U/L (12-78); ALBUMIN 3.4 g/dL (3.4-5.0); ALKALINE PHOSPHATASE 72 U/L (46-116); ASPARTATE AMNIOTRANSFERASE,AST 32 U/L (15-37); BILIRUBIN TOTAL 0.6 mg/dL (0.2-1.0); BLOOD UREA NITROGEN,BUN 9 mg/dL (7-18); CARBON DIOXIDE,CO2 27 mmol/L (21-32); CHLORIDE,CL 103 mmol/L (100-108); CREATININE 0.7 mg/dL (0.6-1.0); EST CRCL DRUG DOSING (CG) 103.46 mL/min; ESTIMATED GFR 109 mL/min (>60); GLUCOSE RANDOM 79 mg/dL (74-106); POTASSIUM,K 4.1 mmol/L (3.6-5.2); PROTEIN TOTAL,TP 6.1 g/dL (6.4-8.2); SODIUM,NA 139 mmol/L (140-148)
[2024-12-03 03:23] LABS: ANION GAP 13.1 mmol/L (5.0-14.0)
[2024-12-03] MEDS: Ondansetron 4 MG/2 ML SDV IVPUSH PRN (05:21)
[2024-12-03] MEDS: HYDROmorphone 0.5 MG/0.5 ML Syringe IVPUSH ONE (12:42)
[2024-12-03] MEDS: Pantoprazole 40 MG Vial IVPUSH ONE (12:46)
[2024-12-03] MEDS: Sodium Phosphate,Monobasic/Sodium Phosphate,Dibasic Enema 133 ML Bottle RECTAL ONE ×2 (15:01→17:04)
[2024-12-03] MEDS: Magnesium Hydroxide 400 MG/5 ML Susp 30 ML Cup PO ONE (15:28)
[2024-12-03] MEDS: Na Phos,M-B/Na Phos,DI-B 60 ML, Mineral Oil 50 ML, Docusate Sodium 400 MG, Magnesium Ci... RECTAL ONE (15:28)
[2024-12-03] MEDS: Magnesium Hydroxide 400 MG/5 ML Susp 30 ML Cup PO SCH (18:27)
[2024-12-03] MEDS: Prochlorperazine 10 MG/2 ML SDV IVPUSH ONE (20:45)
[2024-12-04 06:31] LABS: BASOPHILS ABSOLUTE AUTO 0.05 K/uL (0.00-0.10); BASOPHILS PERCENT AUTO 0.7 % (0.1-1.3); EOSINOPHILS ABSOLUTE AUTO 0.22 K/uL (0.00-0.40); EOSINOPHILS PERCENT AUTO 3.3 % (0.0-5.4); HEMOGLOBIN 11.9 g/dL (11.2-15.5); IMMATURE GRAN ABSOLUTE AUTO 0.03 K/uL (0.00-0.23); IMMATURE GRAN PERCENT AUTO 0.4 % (0.0-0.7); LYMPHOCYTES ABSOLUTE AUTO 0.77 K/uL (0.8-3.3); LYMPHOCYTES PERCENT AUTO 11.4 % (11.4-47.7); MEAN CORPUSCULAR HEMOGLOBIN 32.1 pg (31.6-35.5); MEAN CORPUSCULAR VOLUME 94.3 fL (81.4-99.0); MONOCYTES ABSOLUTE AUTO 0.32 K/uL (0.20-0.90); MONOCYTES PERCENT AUTO 4.8 % (3.3-12.6); NEUTROPHILS ABSOLUTE AUTO 5.34 K/uL (1.0-7.6); NEUTROPHILS PERCENT AUTO 79.4 % (40.0-78.1); PLATELET COUNT,PLT 171 K/uL (130-375); RED BLOOD CELL COUNT 3.71 M/uL (3.77-5.24); WHITE BLOOD CELL COUNT,WBC 6.7 K/uL (3.2-11.0)
[2024-12-04 06:40] LABS: CALCIUM 8.7 mg/dL (8.5-10.1); CREATININE 0.6 mg/dL (0.6-1.0); EST CRCL DRUG DOSING (CG) 120.7 mL/min; POTASSIUM,K 4.6 mmol/L (3.6-5.2)
[2024-12-04 06:45] LABS: ANION GAP 20.6 mmol/L (5.0-14.0)
[2024-12-04] MEDS: Dextrose 5%-0.9% NaCl 1,000 ML IV SCH (07:21)
[2024-12-04] MEDS ORDERED: HYDROmorphone 0.5 MG/0.5 ML Syringe IVPUSH PRN (14:13)
[2024-12-04] MEDS ORDERED: Sodium Chloride 0.9% 10 ML Syringe FLUSH PRN (14:13)
[2024-12-04] MEDS ORDERED: Polyethylene Glycol 3350 Powder 17 GM Packet PO PRN (14:13)
[2024-12-04] MEDS ORDERED: oxyCODONE 5 MG Tab PO PRN (14:13)
[2024-12-04] MEDS ORDERED: Albuterol 6.7 GM Inhaler INH PRN (14:21)
[2024-12-04] MEDS: Sodium Chloride 0.9% 1,000 ML IV SCH (15:12)
[2024-12-04] MEDS: Ondansetron 4 MG/2 ML SDV IVPUSH SCH (15:15)
[2024-12-04 17:21] LABS: CALCIUM 8.8 mg/dL (8.5-10.1); CREATININE 0.6 mg/dL (0.6-1.0); EST CRCL DRUG DOSING (CG) 120.7 mL/min; POTASSIUM,K 4.1 mmol/L (3.6-5.2)
[2024-12-04 17:22] LABS: ANION GAP 16.1 mmol/L (5.0-14.0)
[2024-12-04] MEDS: Acetaminophen 325 MG Tab PO PRN (21:57)
[2024-12-04] MEDS: Gabapentin 100 MG Cap PO SCH (22:00)
[2024-12-05 05:39] VITALS: PULSE 85
[2024-12-05 05:45] LABS: HEMOGLOBIN 11.4 g/dL (11.2-15.5); MEAN CORPUSCULAR HEMOGLOBIN 31.8 pg (31.6-35.5); MEAN CORPUSCULAR HGB CONC 33.5 g/dL (31.6-35.5); RED BLOOD CELL COUNT 3.58 M/uL (3.77-5.24); WHITE BLOOD CELL COUNT,WBC 4.8 K/uL (3.2-11.0)
[2024-12-05 05:57] LABS: CALCIUM 8.4 mg/dL (8.5-10.1); CREATININE 0.6 mg/dL (0.6-1.0); EST CRCL DRUG DOSING (CG) 120.7 mL/min; MAGNESIUM 1.7 mg/dL (1.8-2.4); POTASSIUM,K 4.3 mmol/L (3.6-5.2)
[2024-12-05 06:09] LABS: ANION GAP 18.3 mmol/L (5.0-14.0)
[2024-12-05] MEDS: Celecoxib 200 MG Cap PO SCH (08:04)
[2024-12-05] MEDS: Citalopram 20 MG Tab PO SCH (08:04)
[2024-12-05] MEDS: Magnesium Oxide 400 MG Tab PO SCH (09:06)
[2024-12-05] MEDS: Magnesium Sulfate/Water Premix 2 GM in Premix Bag 1 BAG IV SCH (09:08)
[2024-12-05 11:17] VITALS: BP 120/81
== END 2024-12-05 16:24 | disposition home or self-care (01) | DRG 247 ==
LOC: JP.ED 20:12 → JP.MS 12-04 13:40
PROVIDERS: ADMIT Hospitalist; ATTEND Hospitalist
DX: K56.609 Unspecified intestinal obstruction, unspecified as to partial versus complete obstruction (principal); K59.09 Other constipation; M19.90 Unspecified osteoarthritis, unspecified site; F32.A Depression, unspecified; Z79.899 Other long term (current) drug therapy; Z79.51 Long term (current) use of inhaled steroids; Z90.49 Acquired absence of other specified parts of digestive tract; Z90.89 Acquired absence of other organs; Z98.890 Other specified postprocedural states; Z98.84 Bariatric surgery status
CPT/HCPCS: 36415; 74177; 80048; 80053; 81025; 83605; 83735; 85025; 85027; 96361; 96374; 96375; 96376; 99223; 99238; 99285-25; A9270-GY; J0780; J2405; J2470; J3475; J7030; Q9967

== ENCOUNTER 2025-09-30 19:42 | Emergency (ER) | payer BC ==
[2025-09-30 20:23] LABS: APPEARANCE,URINE CLOUDY (CLEAR); GLUCOSE,URINE NEGATIVE (NEGATIVE); OCCULT BLOOD,URINE NEGATIVE (NEGATIVE)
[2025-09-30] MEDS ORDERED: Sodium Chloride 0.9% 10 ML Syringe FLUSH PRN (20:27)
[2025-09-30] MEDS ORDERED: Naloxone 0.4 MG/ML SDV IVPUSH PRN (20:27)
[2025-09-30 20:31] LABS: SQUAMOUS EPITHELIAL CELLS,UR MODERATE /HPF; UROTHELIAL CELLS,URINE NOT SEEN /HPF
[2025-09-30 20:42] VITALS: BP 114/59; PULSE 80
[2025-09-30 20:43] LABS: BASOPHILS ABSOLUTE AUTO 0.04 K/uL (0.00-0.10); BASOPHILS PERCENT AUTO 0.5 % (0.1-1.3); EOSINOPHILS ABSOLUTE AUTO 0.02 K/uL (0.00-0.40); EOSINOPHILS PERCENT AUTO 0.2 % (0.0-5.4); IMMATURE GRAN ABSOLUTE AUTO 0.03 K/uL (0.00-0.23); IMMATURE GRAN PERCENT AUTO 0.4 % (0.0-0.7); LYMPHOCYTES ABSOLUTE AUTO 0.92 K/uL (0.8-3.3); LYMPHOCYTES PERCENT AUTO 11.5 % (11.4-47.7); MONOCYTES ABSOLUTE AUTO 0.49 K/uL (0.20-0.90); MONOCYTES PERCENT AUTO 6.1 % (3.3-12.6); NEUTROPHILS ABSOLUTE AUTO 6.52 K/uL (1.0-7.6); NEUTROPHILS PERCENT AUTO 81.3 % (40.0-78.1); PLATELET COUNT,PLT 247 K/uL (130-375); RED BLOOD CELL COUNT 3.79 M/uL (3.77-5.24); WHITE BLOOD CELL COUNT,WBC 8.0 K/uL (3.2-11.0)
[2025-09-30] MEDS: Ondansetron 4 MG/2 ML SDV IVPUSH ONE (20:44)
[2025-09-30] MEDS: Sodium Chloride 0.9% 10 ML Syringe FLUSH ONE (21:03)
[2025-09-30] MEDS: Iopamidol 612 MG/ML 100 ML Bottle IV ONE (21:03)
[2025-09-30 21:04] LABS: A/G RATIO 1.4 (1.2-2.2); ALANINE AMINOTRANSFERASE,ALT 34 U/L (12-78); ASPARTATE AMNIOTRANSFERASE,AST 19 U/L (15-37); BILIRUBIN TOTAL 0.7 mg/dL (0.2-1.0); BLOOD UREA NITROGEN,BUN 10 mg/dL (7-18); CARBON DIOXIDE,CO2 25 mmol/L (21-32); CHLORIDE,CL 106 mmol/L (100-108); CREATININE 0.5 mg/dL (0.6-1.0); EST CRCL DRUG DOSING (CG) 143.33 mL/min; ESTIMATED GFR 118 mL/min (>60); GLUCOSE RANDOM 106 mg/dL (74-106); POTASSIUM,K 4.0 mmol/L (3.6-5.2); PROTEIN TOTAL,TP 6.6 g/dL (6.4-8.2); SODIUM,NA 141 mmol/L (140-148)
[2025-09-30 21:07] LABS: LACTIC ACID 0.9 mmol/L (0.4-2.0)
== END 2025-09-30 22:44 | disposition home or self-care (01) ==
LOC: JP.ED 19:42
DX: R10.32 Left lower quadrant pain (principal); Z88.8 Allergy status to other drugs, medicaments and biological substances; Z79.899 Other long term (current) drug therapy; Z90.49 Acquired absence of other specified parts of digestive tract
CPT/HCPCS: 36415; 74177; 80053; 81001; 81025; 83605; 85025; 96361; 96374; 96375; 99284; J2405; J7030; Q9967; J1171